=== PATIENT | male | born 1990 | race Caucasian/White ===

== ENCOUNTER 2020-04-20 16:58 | Emergency (ER) | payer OTHER, SELFPAY ==
[2020-04-20] VITALS (11 sets, daily range): BP systolic 118–156; BP diastolic 68–100; PULSE 70–88; RESP 12–20; TEMP 36.6–37.1; O2SAT 98–100
--- NOTE | ~2020-04-20 | XR_ITS ---
EXAMINATION: XR knee LT 2V EXAM DATE: 04/20/2020 17:41 INDICATION: Post patellar reduction. TECHNIQUE: Frontal and lateral projections of the left knee. Comparison is made to prior examination from 11/24/2012. FINDINGS: There are no acute fractures or dislocations identified. There is no subcutaneous gas. Th e soft tissue is unremarkable. There are no radiopaque foreign bodies. No joint effusion. IMPRESSION: 1. Unremarkable XR knee LT 2V exam. Reviewed, dictated and finalized at location A.
--- NOTE | 2020-04-20 17:06 | ED.LOWEXIN ---
HPI - Extremity Injury (Lower) General Chief Complaint: Extremity Injury, Lower Stated Complaint: left knee pain Time Seen by Provider: 04/20/20 17:01 History of Present Illness HPI Narrative: Patient is a 29-year-old male who presents ER with left patellar dislocation. Patient was playing volleyball in a swimming pool when he twisted on it wrong and felt a pop. He has mild tingling in his toe. Did not strike his head or lose consciousness. Has pain despite having received fentanyl by EMS. Reports ingesting a few alcoholic beverages today but no more than 4 over the last 2 to 3 hours. Related Data Allergies Allergy/AdvReac Type Severity Reaction Status Date / Time Penicillins Allergy Intermediate RASH Verified 04/20/20 17:20 Review of Systems Review of Systems: All systems reviewed & are unremarkable except as noted in HPI and below Musculoskeletal: Musculoskeletal: Reports arthralgias Neurologic: Denies syncope and Denies focal weakness Comments: Left foot tingling PMFSH Past Medical History Medical History (Updated 04/20/20 @ 17:52 by Ehsan Johansen MD) No pertinent past medical history Surgical History Surgical History (Updated 04/20/20 @ 17:07 by Ehsan Johansen MD) No pertinent past surgical history Social History Social History (Updated 04/20/20 @ 17:07 by Ehsan Johansen MD) Substance use: current Exam Narrative: Exam Narrative: GENERAL: Uncomfortable-appearing, well-nourished, and in no acute distress. HEAD: Normocephalic, atraumatic. ENT: Mucous membranes moist. CHEST: Clear to auscultation. No respiratory distress. HEART: Regular rate and rhythm. Normal peripheral pulses. EXTREMITIES: Focused exam of the left lower extremity shows lateral dislocation of the patella respects the knee. Knee is most comfortable and 90 degrees flexion. Is being supported by a rolled up towel/blanket. Neurovascular intact distal to injury. SKIN: Warm, dry, no rash. NEURO: No focal deficits. Alert and oriented x3. Course Course Emergency Course: Patient much better comfortable after reduction. No fracture on reduction x-ray. Discharge home with follow-up with orthopedic surgery and pain control for home. Work note given to be off work until cleared by specialty service. Vital Signs Vital signs: Vital Signs Temperature 98.4 F 04/20/20 17:00 Pulse Rate 77 04/20/20 17:00 Respiratory Rate 14 04/20/20 17:00 Blood Pressure 149/100 H 04/20/20 17:00 Pulse Oximetry 100 04/20/20 17:00 Temperature 98.0 F 04/20/20 17:46 Pulse Rate 78 04/20/20 17:46 Respiratory Rate 13 04/20/20 17:46 Blood Pressure 142/96 H 04/20/20 17:46 Pulse Oximetry 100 04/20/20 17:46 Procedures Orthopedic Joint Reduction Joint #1: Orthopedic Joint Reduction Date: 04/20/20 Orthopedic Joint Reduction Time: 17:49 Time Out Performed: Yes Side: left Joint Reduction Location: other (patella) Analgesia: procedural sedation Pre-Procedure Neuro Vascular Exam: normal Technique used: direct manipulation Post-reduction neuro exam: intact Post-reduction vascular: intact Post Reduction X-Ray Obtained: Yes Post Reduction X-Ray Results: reduced Splint Applied: Yes (knee immobilizer) Patient Tolerated Procedure: well Additional Comments: Procedural sedation with 60 mg of propofol. No hypoxia/hypotension or other complication. Oxygen applied, end-tidal CO2 as well as pulse ox monitored throughout procedure, blood pressure cycled during procedure as well. Crash cart available. No reversal meds used. Suction immediately available. Discharge Plan Discharge Clinical Impression: Closed dislocation of left patella Patient Disposition: Home, Self-Care Condition: Stable Instructions: Patellar Dislocation (ED) Additional Instructions: Follow-up with orthopedic surgery for further treatment and evaluation. Retur
--- NOTE | 2020-04-20 17:31 | PC.NURSE ---
1727 60mg of propofol given IVP by EDP 1728 EDP reduced left patella. 1729 procedure completed
--- NOTE | 2020-05-05 07:22 | PC.NURSE ---
LATE ENTRY This note is being entered to document information to the patient's record. The following information was omitted on [04/20/2020], by [Alexi Siu. Intraprocedure VS time to be 1728 instead of 1726.].
== END 2020-04-20 18:36 | disposition home or self-care (01) ==
PROVIDERS: Emergency Provider Emergency Medicine; PCP Orthopaedic Surgery
DX: S83.005A Unspecified dislocation of left patella, initial encounter (principal); Y93.68 Activity, volleyball (beach) (court); X50.9XXA Other and unspecified overexertion or strenuous movements or postures, initial encounter
CPT/HCPCS: 27560; 73560; 99285; J2704